=== PATIENT | female | born 1980 | race Two or more races ===

== ENCOUNTER 2024-06-13 00:34 | Emergency (ER) | payer OTHER ==
[~2024-06-13] VITALS: Ht 167.6 cm; Wt 79.3 kg
[2024-06-13 00:50] VITALS: BP 175/91; PULSE 91; RESP 16; O2SAT 100
--- NOTE | 2024-06-13 00:52 | ED.PDOC ---
Foreign Body HPI Comments 43-year-old female who came to ER for foreign body. Patient was cleaning her ear with a Q-tip, when the cotton Q-tip got a retained inside her left ear. No other injuries noted no blood loss. Chief Complaint: Foreign body Time Seen by MD: 00:52 History of Present Illness: Nurses Notes Information Source: Patient Mode of Arrival: Ambulatory Timing: Minutes Duration: Since onset Severity: Mild Ability to handle secretions: Difficult Location: Left, Ear Context: Accidental Foreign Body: Other (cotton) Removal: Was attempted Associated signs and symptoms: None Past Medical History PAST MEDICAL HISTORY: Denies Surgical History: Denies all surgeries IUSS ANALYST History: Denies all IUSS ANALYST Hx Family History Family History: Reviewed,noncontributory to illness Social History Smoker: Non-Smoker Alcohol: Denies ETOH Use Drugs: Denies Drug Use Lives In: Home Constitutional: denies: chills, diaphoresis, fatigue, fever, malaise, sweats, weakness, others EENTM: reports: others (Foreign body in left ear canal); denies: blurred vi nuzhat, double vision, ear bleeding, ear discharge, ear drainage, ear pain, ear ringing, eye pain, eye redness, hearing loss, mouth pain, mouth swelling, nasal discharge, nose bleeding, nose congestion, nose pain, photophobia, tearing, throat pain, throat swelling, voice changes Respiratory: denies: cough, hemoptysis, orthopnea, SOB at rest, shortness of breath, SOB with excertion, stridor, wheezing, others Cardiovascular: denies: chest pain, dizzy spells, diaphoresis, Dyspnea on exertion, edema, irregular heart beat, left arm pain, lightheadedness, palpitations, PND, syncope, others Gastrointestinal: denies: abdomen distended, abdominal pain, blood streaked bowels, constipated, diarrhea, dysphagia, difficulty swallowing, hematemesis, melena, nausea, poor appetite, poor fluid intake, rectal bleeding, rectal pain, vomiting, others Genitourinary: denies: abnormal vagina bleeding, burning, dyspareunia, dysuria, flank pain, frequency, hematuria, incontinence, pain, , vagina discharge, urgency, others Neurological: denies: dizziness, fainting, headache, left sided numbness, left sided weakness, numbness, paresthesia, pre-existing deficit, right sided numbness, right sided weakness, seizure, speech problems, tingling, tremors, weakness, others Musculoskeletal: denies: back pain, gout, joint pain, joint swelling, muscle pain, muscle stiffness, neck pain, others Integumetry: denies: bruises, change in color, change in hair/nails, dryness, laceration, lesions, lumps, rash, wounds, others Allergic/Immunocompromised: denies: Difficulty Healing, Frequent Infections, Hives, Itching, others Hematologic/Lymphatic: denies: anemia, blood clots, easy bleeding, easy bruising, swollen glands, others Endocrine: denies: excessive hunger, excessive sweating, excessive thirst, excessive urination, flushing, intolerance to cold, intolerance to heat, unexplained weight gain, unexplained weight loss, others Psychiatric: denies: anxiety, bipolar disorder, depression, hopeless, panic disorder, schizophrenia, sleepless, suicidal, others Physical Exam General Appearance: No Apparent Distress (Patient is in no distress but rather some mild anxiety due to the foreign body in her left ear canal), Normal HEENT: Pharynx Normal, TMs Normal, Other (Head of Q-tip noted in left ear canal.) Neck: Full Range of Motion, Non-Tender, Normal, Normal Inspection Respiratory: Chest Non-Tender, Lungs Clear, No Accessory Muscle Use, No Respiratory Distress, Normal Breath Sounds Cardiovascular: No Edema, No JVD, No Murmur, No Gallop, Normal Peripheral Pulses, Regular Rate/Rhythm Breast Exam: Deferred Gastrointestinal: No Organomegaly, Non Tender, No Pulsatile Mass, Normal Bowel Sounds, Soft Genitalia: Deferred Pelvic: Deferred Rectal: Deferred Extremities: No calf tenderness, Normal capillary refill, Normal inspection, Normal range of motion, Non-tender, No pedal edema Musculoskeletal : Apperance: Normal Neurologic: Alert, circular shear operator II-XII nml as Tested, No Motor Deficits, Normal Affect, Normal Mood, No Sensory Deficits Cerebellar Function: Normal Reflexes: Normal Skin: Dry, Normal Color, Warm Lymphatic: No Adenopathy Was a procedure done? Was a procedure done?: Yes Sedation Sedation?: No Foreign Body Removal Foreign body in: Ear Anesthetic: Nothing Procedure: Identified (Q-tip) Informed consent obtained: Yes Risks/benefits/alt described: Yes Other Procedure Procedure Cotton Q-tip head was removed with tweezers. Patient tolerated procedure well. No blood loss. FB Differential Dx Differential Diagnosis: Foreign Body X-Ray, Labs, Meds, VS Comment Q-tip cotton head was removed without incident. Patient was very thankful. Advised patient to not utilize Q-tips in the canal but rather, only around the auricle. Time of 1ST Reevaluation: 00:59 Reevaluation 1ST: Improved Consultation: PCP Patient Education/Counseling: Diagnosis, Treatment Family Education/Counseling: Diagnosis, Treatment, No Family Present Departure 1 Departure Time of Disposition: 00:59 Impression: Primary Impression: Acute foreign body of ear canal Disposition: 01 HOME / SELF CARE / HOMELESS Condition: Stable Additional Instructions: Advised patient to not utilize Q-tips for inner ear concerns but rather, for cleaning of the auricle only. Discharged With: Self, Spouse Critical Care Note Critical Care Time?: No Stability Stability form required: No Heart Score Heart Score: Heart Score Response (Comments) Value History N/A 0 EKG N/A 0 Age N/A 0 Risk Factors N/A 0 Troponin N/A 0 Total 0 I personally scribed for MERCY BRANDT PAC ([email or web address]) on 06/13/24 at 00:52. Electronically submitted by Jose Smith ([email or web address]). MERCY BRANDT PAC Jun 13, 2024 00:52
== END 2024-06-13 01:02 | disposition home or self-care (01) ==
LOC: ER 00:34
DX: T16.2XXA Foreign body in left ear, initial encounter (principal); W44.8XXA Other foreign body entering into or through a natural orifice, initial encounter; Y93.89 Activity, other specified; Y92.89 Other specified places as the place of occurrence of the external cause; Y99.8 Other external cause status
CPT/HCPCS: 69200